=== PATIENT | female | born 1980 | race Caucasian/White ===

== ENCOUNTER 2017-05-10 15:44 | Emergency (ER) | payer OTHER | END 2017-05-10 17:22 | disposition home or self-care (01) | LOC: D.ER 15:44 | DX: H66.91 Otitis media, unspecified, right ear (principal); S39.012A Strain of muscle, fascia and tendon of lower back, initial encounter; V43.52XA Car driver injured in collision with other type car in traffic accident, initial encounter; Y93.89 Activity, other specified; Y92.410 Unspecified street and highway as the place of occurrence of the external cause; F17.200 Nicotine dependence, unspecified, uncomplicated ==